=== PATIENT | female | born 1935 | race Caucasian/White ===

== ENCOUNTER 2018-05-07 10:19 | Observation (INO) | payer MEDICARE, BC ==
--- NOTE | 2018-05-07 11:19 | CT ---
HEAD CT WITHOUT CONTRAST: Date: 05/07/18 HISTORY: Patient reports falling from a sitting position, hit head on nightstand. Patient having nausea and ep isodes of emesis. COMPARISON: None. FINDINGS: No parenchymal hemorrhage. No extra-axial hematoma. No midline shift. Basilar cisterns are patent. Ag e-appropriate atrophy. Cortical jones-white matter differentiation preserved. No evidence of hydrocephalus. White matter hypodensities due to chronic small vessel ischemic change. Calvarium is intact. Adequate aeration of the sinuses and mastoid air cells. IMPRESSION: No intracranial post-traumatic sequelae. POS: [facility]
--- NOTE | 2018-05-07 11:46 | RAD ---
FRONTAL VIEW CHEST: Date: 05/07/18 INDICATION: Injury with pain. FINDINGS: There is elevation of the right hemidiaphragm. Lungs are clear. Cardiac silhouette is accentuated wit h portable technique. There is vascular calcification and osseous degenerative change. IMPRESSION: No focal consolidation. POS: [facility]
[2018-05-07 11:47] LABS: #Eosinphils 0.1 thou/uL (0.0-0.7); #Lymphocytes 1.6 thou/uL (1.20-3.40); #Monocytes 0.8 thou/uL (0.11-0.59); %Basophils 0.3 % (0.0-1.0); %Eosinophils 0.4 % (0.0-10.0); %Lymphocytes 12.7 % (21.0-51.0); %Monocytes 6.1 % (0.0-10.0); %Neutrophils 80.5 % (42.0-75.0); Hemoglobin 14.9 g/dL (12.0-16.0); Mean Corpuscular HGB CONC 32.4 g/dL (32.0-36.0); Mean Corpuscular Hemoglobin 30.5 pg (27.0-31.0); Mean Corpuscular Volume 94.1 fL (78.0-98.0); Mean Platelet Volume 8.5 fL (7.4-10.4); Platelet Count 232 thou/uL (130-400); RBC Distribution Width 12.2 % (11.5-14.5); White Blood Cell (WBC) Count 12.4 thou/uL (4.8-10.8)
--- NOTE | 2018-05-07 11:52 | RAD ---
3 VIEW LEFT HAND: Date: 05/07/18 INDICATION: Injury, pain. FINDINGS: There is scattered osseous degenerative change and demineralization. No evidence of fracture or dislo cation. No radiopaque foreign body. IMPRESSION: No acute osseous abnormality of left hand. POS: [facility]
[2018-05-07 12:07] LABS: ALT (SGPT) 13 U/L (8-55); AST (SGOT) 20 U/L (5-34); Albumin 4.3 g/dL (3.4-4.8); Alkaline Phosphatase 55 U/L (40-150); Anion Gap 14 mmol/L (10-20); BUN (Urea Nitrogen) 13 mg/dL (9.8-20.1); Bilirubin, Total 0.5 mg/dL (0.2-1.2); CK (CPK) 95 U/L (29-168); Calc. Creatinine Clearance 0 mL/min (70-130); Calcium 9.8 mg/dL (7.8-10.44); Carbon Dioxide 23 mmol/L (23-31); Chloride 105 mmol/L (98-107); Estimated GFR-MDRD 72; Globulin 3.2 g/dL (2.4-3.5); Glucose 97 mg/dL (83-110); Lipase 14 U/L (8-78); Potassium 4.3 mmol/L (3.5-5.1); Protein, Total 7.5 g/dL (6.0-8.3); Sodium 138 mmol/L (136-145)
--- NOTE | 2018-05-07 12:19 | RAD ---
3 VIEWS RIGHT HAND: Date: 05/07/18 HISTORY: Right thumb pain. FINDINGS: AP, lateral, and oblique views of right hand obtained. 3 views of right hand demonstrate no definite evidence of right hand fractures, subluxations, or bony lesions. Diffuse bony demineralization is seen. IMPRESSION: No evidence of acute right hand fractures or bony lesions. POS: [facility]
[2018-05-07] MEDS ORDERED: Meclizine HCl 25 MG TAB ONE (12:53)
[2018-05-07 13:16] LABS: Bilirubin Negative (Negative); Blood, Urine Negative (Negative); Glucose, Urine (Dipstick) Negative (Negative); Leukocyte Small (Negative); Nitrite Negative (Negative); Protein, Urine (Dipstick) Negative (Neg-Trace); Urobilinogen 0.2 mg/dL (0.2-1.0)
[2018-05-07 13:19] LABS: Clarity CLEAR (Clear)
[2018-05-07 13:22] LABS: Bacteria/HPF None Seen HPF (None Seen); Hyaline Casts/LPF NONE SEEN LPF (0-3 Hyaline); RBC/HPF None Seen HPF (0-3)
--- NOTE | 2018-05-07 13:55 | PDOC.FPRHP ---
- History of Present Illness Chief Complaint: syncope History of Present Illness: 82 yo F with HTN presented with syncope right after awakening this AM, reports she sat up out of bed and felt dizzy (the room spinning) and fell onto the ground after hitting the nightstand with her arms and hit her head this morning. She lost consciousness, does not know for how long. Then she awoke in the bathroom but doesn't remember how she got there. She called for help. She has had multiple episodes of vomiting, denies hematemesis. She reports she is otherwise healthy, was out in the sun fishing yesterday for 1 hour and did not drink much water. She had 1 glass of tea yesterday. She voided twice overnight. She reports she is still dizzy and feeling light headed right now, the room is not spinnning anymore but just feels light headed. No fevers/chills or obvious signs/symptoms of infection. No history of stroke, TIA , or syncope or passing out in the past. She reports she was having visual hallucinations, saw "chicken wire" on the ceiling and seeing blue and green. She denies taking any other medication over the counter besides the prescribed. ED Course: EKG shows bradycardia. CT head negative. In ED, Given meclizine and 1 L NS. - Allergies/Adverse Reactions Allergies Allergy/AdvReac Type Severity Reaction Status Date / Time hydrocodone Allergy Intermediate vomiting Verified 05/07/18 14:42 - Home Medications Medication Instructions Recorded Confirmed Type Atorvastatin Calcium [Lipitor] 10 mg PO DAILY 05/07/18 05/07/18 History Losartan Potassium 50 mg PO DAILY 05/07/18 05/07/18 History Pantoprazole [Protonix] 40 mg PO DAILY 05/07/18 05/07/18 History - History PMHx: HTN, GERD, HLD PSHx: None FHx: Cardiac: mother, Cancer: father lung cancer Social: denies alcohol, tobacco, or drug use Allergies: hydrocodone- made her vomit - Review of Systems General: denies: fever/chills Eyes: reports: vision changes (she has been hallucinating seeing some colors since coming to the ER, not currently). denies: eye pain ENT: denies: nasal congestion, rhinorrhea Respiratory: denies: cough, congestion, shortness of breath Cardiovascular: denies: chest pain, palpitation Gastrointestinal: reports: vomiting. denies: nausea, diarrhea, constipation, abdominal pain Genitourinary: denies: dysuria, discharge Skin: denies: rashes, lesions Musculoskeletal: denies: pain, tenderness Neurological: reports: syncope. denies: seizure Psychological: denies: anxiety, depression - Vital signs BP: 145/51 HR: 59 RR: 17 Tmax: 98 Pox: 97 % on RA Wt: 74.8 kg - Physical Exam Constitutional: NAD, awake, alert and oriented HEENT: normocephalic and atraumatic, PERRLA, grossly normal hearing, MMM, oropharynx clear Neck: supple, no LAD Chest: no-tender to palpation Heart: RRR, normal S1/S2, no murmurs/rubs/gallops, pulses present, no edema Lungs: CTAB, no respiratory distress, no wheezing Abdomen: soft, non-tender, bowel sounds present, no masses/distention Musculoskeletal: normal structure, normal tone Neurological: no focal deficit, CN II-XII intact, normal sensation, DTRs 2+ -Neurological: pt unable to sit up due to light headedness Skin: no rash/lesions, good turgor, capillary refill <2 seconds Heme/Lymphatic: no unusual bruising or bleeding, no purpura Psychiatric: normal mood and affect, good judgment and insight, intact recent and remote memory FMR H&P: Results - Labs Result Diagrams: 05/08/18 04:23 05/08/18 04:23 Lab results: WBC 12.4 thou/uL (4.8-10.8) H 05/07/18 11:17 Hgb 14.9 g/dL (12.0-16.0) 05/07/18 11:17 Hct 46.1 % (36.0-47.0) 05/07/18 11:17 MCV 94.1 fL (78.0-98.0) 05/07/18 11:17 Plt Count 232 thou/uL (130-400) 05/07/18 11:17 Neutrophils % 80.5 % (42.0-75.0) H 05/07/18 11:17 Sodium 138 mmol/L (136-145) 05/07/18 11:17 Potassium 4.3 mmol/L (3.5-5.1) 05/07/18 11:17 Chloride 105 mmol/L (98-107) 05/07/18 11:17 Carbon Dioxide 23 mmol/L (23-31) 05/07/18 11:17 BUN 13 mg/dL (9.8-20.1) 05/07/18 11:17 Creatinine 0.77 mg/dL (0.6-1.1) 05/07/18 11:17 Glucose 97 mg/dL (83-110) 05/07/18 11:17 Calcium 9.8 mg/dL (7.8-10.44) 05/07/18 11:17 Total Bilirubin 0.5 mg/dL (0.2-1.2) 05/07/18 11:17 AST 20 U/L (5-34) 05/07/18 11:17 ALT 13 U/L (8-55) 05/07/18 11:17 Alkaline Phosphatase 55 U/L (40-150) 05/07/18 11:17 Creatine Kinase 95 U/L (29-168) 05/07/18 11:17 Serum Total Protein 7.5 g/dL (6.0-8.3) 05/07/18 11:17 Albumin 4.3 g/dL (3.4-4.8) 05/07/18 11:17 Lipase 14 U/L (8-78) 05/07/18 11:17 Urine Ketones Negative mg/dL (Negative) 05/07/18 12:48 Urine Blood Negative (Negative) 05/07/18 12:48 Urine Nitrite Negative (Negative) 05/07/18 12:48 Ur Leukocyte Esterase Small (Negative) H 05/07/18 12:48 Urine RBC None Seen HPF (0-3) 05/07/18 12:48 Urine WBC 4-6 HPF (0-3) H 05/07/18 12:48 Ur Squamous Epith Cells 4-6 HPF (0-3) H 05/07/18 12:48 Urine Bacteria None Seen HPF (None Seen) 05/07/18 12:48 - EKG Interpretation EKG: bradycardia - Radiology Interpretation CT scan - head Additional comment: no acute abnormalities FMR H&P: A/P - Problem List (1) Syncope Current Visit: Yes Status: Acute Code(s): R55 - SYNCOPE AND COLLAPSE (2) HTN (hypertension) Current Visit: Yes Status: Acute Code(s): I10 - ESSENTIAL (PRIMARY) HYPERTENSION (3) HLD (hyperlipidemia) Current Visit: Yes Status: Acute Code(s): E78.5 - HYPERLIPIDEMIA, UNSPECIFIED (4) GERD (gastroesophageal reflux disease) Current Visit: Yes Status: Acute Code(s): K21.9 - GASTRO-ESOPHAGEAL REFLUX DISEASE WITHOUT ESOPHAGITIS - Plan Syncope w/ persistent vertigo A- No clear etiology at this time. Negative head CT rules out intracranial events and trauma 2/2 syncope. Possibly 2/2 orthostatic hypotension vs. cardiac arrhythmia. Persistent Vertigo is concerning for possible CVA. Orthostatics unobtainable in ED 2/2 nausea and dizziness. EKG significant for sinus bradycardia w/ HR in 50's and 60's. WBC 12.4 but pt does not appear to have infection at this time, extensive ROS negative. Pt is s/p 1L IVF and meclizine in ED. P- admit to tele for monitor of HR and rhythm - Echocardiogram - brain MRI - carotid dopplers - Mg, phos, TSH - will obtain orthostatics when tolerated - Will perform [place] hallpike and HINTS exam when tolerated - ASA 325mg today, 81mg daily starting tomorrow - will increase atorvastatin to 40mg daily until CVA is ruled - Zofran prn for nausea - 1L LR bolus GERD - continue home pantoprazole HTN - hold home losartan for permissive htn HLD - atorvastatin IVF: SL Code status: Full code Dispo: tele, observation. Stay likely less than 2 midnights From [facility], PCP is Dr. Haas FMR H&P: Upper Level - Pertinent history 82F presenting to ED after a fall from a sitting position upon awakening this morning. Patient reports waking up this morning and sitting up in bed. She then felt the room spinning and fell to the floor, hitting her head on her nightstand. She endorses a brief loss of consciousness. Family was in the room next door and report she was somewhat confused after the event. This episode had no prodrome and was followed by 3-4 episodes of vomiting. Patient endorses persistent dizziness. She describes lightheadedness, and denies the room spinning at this time. She is so dizzy that she is unable to sit up in bed at this time. She has no history of CVA, syncope, or seizures. She denies any loss of sensation or motor weakness since the event. - Pertinent findings 145/51 HR: 59 RR: 17 Tmax: 98 Pox: 97 % on RA Wt: 74.8 kg Gen: no acute distress; unable to sit up without becoming symptomatic CV: RRR; no murmurs Pulm: CTA-B Abd: soft; nondistended; nonTTP Ext: no cyanosis or edema Neuro: CNII-XII intact; no nystagmus; ron-hallpike unable to be performed 2/[address] head: no acute process EKG: sinus bradycardia CBC, CMP, and UA all within normal limits trop negative - Plan Date/Time: 05/07/18 7905 I, Ed Gallagher, have evaluated this patient and agree with findings/plan as outlined by internet assessor resident. Pertinent changes/additions are listed here. Syncope: likely secondary to orthostatic hypotension, but her pesistent vertigo still unexplained at this time. ED unable to perform orthostatic vitals 2/2 symptoms. Given inability to tolerate [place]-Hallpike maneuver or HINTs exam, we will proceed with MRI of brain, specifically to r/o basilar stroke. Will complete the stroke rule out with carotid ultrasound. Patient with sinus bradycardia in ED, but no history of CAD or heart failure. Monitor on telemetry for possible SSS. TTE ordered for tomorrow. Patient had not taken her medications this morning and is only on an ARB, PPI, and statin so this is likely not 2/2 to medication. Addendum - Attending - Attending Attestation Date/Time: 05/08/18 2231 I personally evaluated the patient and discussed the management with Dr. Rocha yesterday. I agree with the History, Examination, Assessment and Plan documented above with any addition or exceptions noted below.
[2018-05-07 14:55] LABS: Troponin I Less than 0.010 ng/mL (< 0.028)
[2018-05-07] MEDS ORDERED: Calcium Carbonate 500 MG ChewTAB PO PRN (15:54)
[2018-05-07] MEDS ORDERED: Ondansetron PF 4 MG/2 ML Vial IVP PRN (15:54)
[2018-05-07] MEDS ORDERED: Aspirin 325 mg Enteric Coated Tablet PO SCH (16:00)
[2018-05-07 16:16] LABS: Magnesium 2.1 mg/dL (1.6-2.6)
[2018-05-07 17:08] VITALS: BMI 32.8
[2018-05-07] MEDS: Ondansetron ODT 4 MG TAB PO PRN (17:44)
[2018-05-07] MEDS: Acetaminophen 325 MG TAB PO PRN (19:11)
--- NOTE | 2018-05-07 19:53 | ULT ---
ULTRASOUND CAROTID DOPPLER STANDARD: History: Syncope. Comparison: None. FINDINGS: Real-time grayscale, color doppler and spectral analysis of the extracranial, carotid, and vertebral arteries was performed. Antegrade flow of both vertebral arteries. Elevated peak systolic velocity within the left distal int ernal carotid artery of 134 cm/sec. No elevated peak systolic velocity within the right internal carotid artery. IMPRESSION: 50-69% (moderate) stenosis of the left internal carotid artery. POS: [facility]
[2018-05-07] MEDS: Ibuprofen 600 MG TAB PO PRN (23:04)
[2018-05-08 04:59] LABS: #Basophils 0.1 thou/uL (0.0-0.2); #Eosinphils 0.2 thou/uL (0.0-0.7); #Monocytes 0.9 thou/uL (0.11-0.59); %Basophils 0.7 % (0.0-1.0); %Lymphocytes 32.8 % (21.0-51.0); %Monocytes 10.1 % (0.0-10.0); %Neutrophils 54.3 % (42.0-75.0); Hemoglobin 13.6 g/dL (12.0-16.0); Mean Corpuscular HGB CONC 33.5 g/dL (32.0-36.0); Mean Corpuscular Volume 95.4 fL (78.0-98.0); Mean Platelet Volume 8.2 fL (7.4-10.4); Platelet Count 206 thou/uL (130-400); RBC Distribution Width 12.3 % (11.5-14.5); Red Blood Cell (RBC) Count 4.26 mill/uL (4.20-5.40); White Blood Cell (WBC) Count 9.1 thou/uL (4.8-10.8)
[2018-05-08 05:16] LABS: Anion Gap 13 mmol/L (10-20); BUN (Urea Nitrogen) 10 mg/dL (9.8-20.1); Calc. Creatinine Clearance 80 mL/min (70-130); Calcium 8.9 mg/dL (7.8-10.44); Carbon Dioxide 22 mmol/L (23-31); Chloride 109 mmol/L (98-107); Estimated GFR-MDRD 76; Glucose 91 mg/dL (83-110); Potassium 3.9 mmol/L (3.5-5.1); Sodium 140 mmol/L (136-145)
--- NOTE | 2018-05-08 06:22 | PDOC.FM ---
- Subjective Subjective: Pt was getting US at time of evaluation. Pt reported feeling improved from yesterday. She has persistent vertigo only when leaning forward in her bed though it is less severe. No new complaints. no fever/chills, no focal neurologic deficit, no cp/sob - Objective MAR Reviewed: Yes Vital Signs & Weight: Vital Signs (12 hours) Temp Pulse Resp BP BP Pulse Ox 05/08/18 04:20 98.1 F 53 L 16 145/64 H 95 05/07/18 23:00 97.9 F 53 L 12 133/61 95 05/07/18 19:33 98.8 F 53 L 16 149/67 H 97 Weight Weight 84.085 kg Result Diagrams: 05/08/18 04:23 05/08/18 04:23 Phys Exam - Physical Examination Constitutional: NAD HEENT: moist MMs, sclera anicteric Neck: no JVD, supple equal chest rise, no resp distress Cardiovascular: RRR no edema Gastrointestinal: no distention Musculoskeletal: no edema Neurological: normal sensation, moves all 4 limbs Psychiatric: normal affect, A&O x 3 Skin: no rash, normal turgor Dx/Plan (1) Syncope Code(s): R55 - SYNCOPE AND COLLAPSE Status: Acute (2) HTN (hypertension) Code(s): I10 - ESSENTIAL (PRIMARY) HYPERTENSION Status: Acute (3) HLD (hyperlipidemia) Code(s): E78.5 - HYPERLIPIDEMIA, UNSPECIFIED Status: Acute (4) GERD (gastroesophageal reflux disease) Code(s): K21.9 - GASTRO-ESOPHAGEAL REFLUX DISEASE WITHOUT ESOPHAGITIS Status: Acute - Plan Plan: Syncope w/ persistent vertigo A- No clear etiology at this time. Negative head CT rules out intracranial events and trauma 2/2 syncope. Possibly 2/2 orthostatic hypotension vs. cardiac arrhythmia. Carotid doppler shows LICA stenosis 50-69%. Persistent Vertigo is concerning for possible CVA. EKG significant for sinus bradycardia w/ HR in 50' s and 60's. WBC 12.4 but pt does not appear to have infection at this time, extensive ROS negative. Pt is s/p 1L IVF and meclizine in ED. P- Echocardiogram - brain MRI - Will perform Morris hallpike and HINTS exam when done with echo and if tolerated by pt - ASA 81mg daily - continue atorvastatin to 40mg daily - Zofran prn for nausea L Internal carotid artery stenosis A- 50-69% stenosis on Carotid doppler study. Could be contributing to syncope/ vertigo though unlikely. P- will optimize medical mgmt at this time including HTN meds and continuation of higher dose of atorvastatin. recommend f/u outpt. GERD - continue home pantoprazole HTN - hold home losartan for permissive htn HLD - atorvastatin IVF: SL Code status: Full code From [facility], PCP is Dr. Gonzales Addendum - Attending - Attending Attestation Date/Time: 05/08/18 6017 I personally evaluated the patient and discussed the management with Dr. Rocha. I agree with the History, Examination, Assessment and Plan documented above with any addition or exceptions noted below. Patient here with vertigo that resulted in a fall and possible syncope yesterday. She is feeling well this morning, but does have some issues with vertigo and nausea when rising to a seated position and with position changes. Suspect this could be due to BPPV, vestibular neuritis, vertebrobasilar insufficiency. MRI and Echo pending. She has no other focal deficits so I doubt true CVA, but this may need further workup. Work to control symptoms with Meclizine and Zofran. Her carotid dopplers did show unilateral stenosis, but this would not result in syncope and collapse. Await results of MRI and if normal consider CTA of the posterior circulation either while here or in the outpatient setting as she seems to prefer.
[2018-05-08] MEDS ORDERED: Pantoprazole 40 MG GRANULES PACKET PO SCH (09:00)
[2018-05-08] MEDS ORDERED: Enoxaparin Sodium 40 MG/0.4 ML SYRINGE SC SCH (09:00)
[2018-05-08] MEDS ORDERED: Atorvastatin Calcium 20 MG TAB PO SCH (09:00)
[2018-05-08] MEDS ORDERED: Aspirin 81 mg Enteric Coated Tablet PO SCH (09:00)
[2018-05-08] MEDS: Ibuprofen 600 MG TAB PO PRN (09:40)
[2018-05-08] MEDS: Ondansetron ODT 4 MG TAB PO PRN ×2 (14:58→18:57)
[2018-05-08] MEDS: Meclizine HCl 12.5 MG TAB PO PRN ×2 (14:58→18:58)
[2018-05-08] MEDS: Acetaminophen 325 MG TAB PO PRN (14:58)
[2018-05-08 16:32] VITALS: BP 135/64; TEMP 98.7
--- NOTE | 2018-05-08 17:23 | MRI ---
BRAIN MRI WITHOUT CONTRAST 05/08/18 INDICATION: Syncope with vertigo. Stroke. FINDINGS: there is parenchymal volume loss with compensatory dilatation of ventricular system. Mild chronic isc hemic disease is present involving the cerebral white matter. Pontine gliosis is also seen. There is no acute territorial infarction, intracranial mass effect or midline shift. No hemorrhagic susceptib ility. IMPRESSION: 1. No acute territorial infarction or mass effect. 2. Mild chronic ischemic disease. POS: [facility]
--- NOTE | 2018-05-09 11:00 | DIS ---
DATE OF ADMISSION: 05/07/2018 DATE OF DISCHARGE: 05/08/2018 ADMITTING ATTENDING: Dr. Alex Mera. DISCHARGE ATTENDING: Dr. Vasquez Acuna. CONSULTS: None. PROCEDURES: 1. On 05/07/2018, chest x-ray, impression, no focal consolidation. 2. On 05/07/2018, hand x-ray, impression, no acute osseous abnormality of the left hand. 3. On 05/07/2018, brain CT, impression, no intracranial posttraumatic sequelae. 4. On 05/07/2018, hand x-ray, impression, no evidence of acute right hand fracture or bony lesion. 5. On 05/07/2018, carotid Doppler study, impression, 50% to 69% stenosis of the left internal carotid artery. 6. On 05/08/2018, brain MRI, impression, no acute territorial infarction or mass effect. Mild chronic ischemic disease. 7. On 05/08/2018, echocardiogram report, ejection fraction is estimated at 60% to 65%, possible diastolic dysfunction. Normal right ventricular size and function. Trace mitral regurgitation. Aortic valve leaflets somewhat thickened. Mild tricuspid regurgitation. PRIMARY DIAGNOSIS: Syncope. SECONDARY DIAGNOSES: Persistent vertigo, left internal carotid artery stenosis, gastroesophageal reflux disease, hypertension, hyperlipidemia. DISCHARGE MEDICATIONS: 1. Pantoprazole 40 mg p.o. daily. 2. Losartan 50 mg p.o. daily. 3. Acetaminophen 650 mg p.o. q.4 hours p.r.n. 4. Atorvastatin 40 mg p.o. daily. 5. Ibuprofen 600 mg p.o. q.8 hours p.r.n. 6. Meclizine 12.5 mg p.o. t.i.d. p.r.n., 21 tablets. 7. Ondansetron 4 mg p.o. q.6 hours p.r.n., 28 tabs. Discontinued medications: Atorvastatin 10 mg p.o. daily. HISTORY OF PRESENT ILLNESS AND HOSPITAL COURSE: This is an 82-year-old female who presented to the emergency department after having a syncopal episode on the side of her bed. The patient hit her head on the bedside table and when she came to, she had a sensation of vertigo. Vertigo was persistent until presentation in the emergency department and moderately controlled with Zofran and meclizine. The patient was admitted for workup of vertigo and syncope and initially treated as a stroke rule out patient with an increase of home statin dosage and aspirin. Extensive imaging studies were done including CT head and brain MRI, both of which were unremarkable as listed above. Carotid Doppler studies did show some moderate stenosis, but not to merit cardiovascular consultation. Contributing to syncope was probably the fact that the patient was mildly hypovolemic on presentation, having been fishing the day before and not drinking any fluids. The patient also has resting heart rate in the 50s showing sinus bradycardia on the EKG, that in combination with carotid artery stenosis could have contributed to syncope. Once malicious causes of syncope and vertigo were ruled out with MRI and showing a normal echo, the patient was discharged home with medications for symptomatic relief for further outpatient workup of continued vertigo. Differential should include vertebrobasilar insufficiency and BPPV. The Glynn maneuver and Morris-Hallpike were offered to patient, but were refused at the time of hospitalization. Recommend consideration of CT angiogram in outpatient setting and possible Cardiovascular Surgery consultation for further evaluation of carotid artery stenosis. Once the patient was deemed stable for discharge, they were sent home with prescriptions. DISCHARGE DISPOSITION: Stable. DISCHARGE INSTRUCTIONS: Location: Home. Diet: Healthy heart. Activity: As tolerated with fall precautions. Prescription for a walker and wheelchair given. Followup with primary care provider, Dr. Gonzales, in [place], [place], in 7 days. Job ID: [id number]
--- NOTE | 2018-05-12 18:02 | EKG ---
Test Reason : BRADYCARDIA Blood Pressure : / mmHG Vent. Rate : 051 BPM Atrial Rate : 051 BPM P-R Int : 158 ms QRS Dur : 072 ms QT Int : 456 ms P-R-T Axes : 047 014 040 degrees QTc Int : 420 ms Sinus bradycardia with sinus arrhythmia Low voltage QRS Borderline ECG Confirmed by CHONG CERRATO DO ([id number]), newspaper managing editor FLETCHER FELIPE ([id number]) on 05/12/2018 6:02:15 PM Referred By: BLOSSOM Confirmed By:CHONG CERRATO DO
== END 2018-05-08 19:17 | disposition home or self-care (01) ==
LOC: ERS 10:19 → 2SW 15:52
PROVIDERS: ADMIT Family Medicine; ATTEND Family Medicine
DX: R55 Syncope and collapse (principal); R42 Dizziness and giddiness; I65.22 Occlusion and stenosis of left carotid artery; K21.9 Gastro-esophageal reflux disease without esophagitis; I10 Essential (primary) hypertension; E78.5 Hyperlipidemia, unspecified; E86.1 Hypovolemia; Z79.899 Other long term (current) drug therapy; Z88.5 Allergy status to narcotic agent; W01.198A Fall on same level from slipping, tripping and stumbling with subsequent striking against other object, initial encounter
CPT/HCPCS: 70450; 70551; 71045; 73130 ×2; 80048; 82550; 83690; 83735; 84100; 84484 ×2; 85025; 93005; 93306; 93880; 96360; 96372; 99285; G0378 ×2; 36415; 80053; 81003; 81015; 84443; J1650; J8597; Q0162